=== PATIENT | male | born 1980 | race Caucasian/White ===

== ENCOUNTER 2018-02-17 14:22 | Emergency (ER) | payer OTHER ==
[~2018-02-17] VITALS: Ht 182.9 cm; Wt 86.4 kg
[2018-02-17 14:28] VITALS: Ht 182.9 cm; Wt 86.4 kg
[2018-02-17 15:31] LABS: ALBUMIN 4.2 g/dL (3.4-5.0); ANION GAP 21.2 mmol/L (8-16); BILIRUBIN - TOTAL 0.95 mg/dL (0.2-1.3); CALCIUM 8.5 mg/dL (8.5-10.1); CARBON DIOXIDE 17.3 mmol/L (21.0-32.0); CREATININE - SERUM 1.3 mg/dL (0.6-1.3); POTASSIUM - SERUM 3.5 mmol/L (3.5-5.1); PROTEIN - SERUM 7.3 g/dL (6.4-8.2)
[2018-02-17 15:51] LABS: BASOPHILS 0.1 % (0-2); EOSINOPHILS 0.1 % (0-7); HEMATOCRIT 42.7 % (42.0-54.0); HEMOGLOBIN 15.1 g/dL (13.5-17.5); IMMATURE GRANULOCYTES 0.3 % (0-5); LYMPHOCYTES 9.6 % (15-50); MCH 28.6 pg (26.0-34.0); MCHC 35.4 g/dL (31.0-37.0); MCV 80.9 fL (80.0-100.0); MEAN PLATELET VOLUME 10.6 fL (7.4-10.4); NEUTROPHILS 83.9 % (40-80); PLATELET COUNT 193 10x3/uL (130-400); RBC 5.28 10x6/uL (4.20-6.10); RDW 13.2 % (11.5-14.5); WBC 14.1 10x3/uL (4.8-10.8)
[2018-02-17 16:21] LABS: APPEARANCE CLEAR (CLEAR); BILIRUBIN NEGATIVE (NEGATIVE); COLOR YELLOW (YELLOW); GLUCOSE NEGATIVE (NEGATIVE); KETONE MODERATE mg/dL (NEGATIVE); NITRITE NEGATIVE (NEGATIVE); PROTEIN NEGATIVE (NEGATIVE); UROBILINOGEN NORMAL (NORMAL)
[2018-02-17] MEDS ORDERED: DOXYCYCLINE HY100 M2 PO (18:49)
[2018-02-17 19:53] VITALS: BP 111/64
[2018-02-19 15:25] LABS: RMSF IGM 0.29 index (0.00-0.89)
== END 2018-02-17 19:53 | disposition home or self-care (01) ==
LOC: D.ER 14:22
PROVIDERS: Family Medicine
DX: A93.8 Other specified arthropod-borne viral fevers (principal); R53.1 Weakness; R53.81 Other malaise; R00.0 Tachycardia, unspecified